=== PATIENT | female | born 1975 | race African-American/Black ===

== ENCOUNTER 2016-08-16 12:06 | Emergency (ER) | payer OTHER ==
[~2016-08-16] VITALS: Ht 167.6 cm; Wt 99.8 kg
[2016-08-16 12:58] VITALS: BP 122/78
== END 2016-08-16 14:48 | disposition home or self-care (01) ==
LOC: ER 12:20
DX: S33.5XXA Sprain of ligaments of lumbar spine, initial encounter (principal); V49.49XA Driver injured in collision with other motor vehicles in traffic accident, initial encounter; Y93.89 Activity, other specified; Y99.8 Other external cause status; Y92.410 Unspecified street and highway as the place of occurrence of the external cause